=== PATIENT | female | born 1955 | race Asian ===

== ENCOUNTER 2017-03-16 20:58 | Emergency (ER) | payer MEDICAID ==
[~2017-03-16] VITALS: Ht 149.9 cm; Wt 63.5 kg
[~2017-03-16 20:58] MED LIST: ASPIRIN EC81 MG ORAL; ATORVASTATIN CA20 MG ORAL; BACTRIM DS TAB1 EAC1 ORAL; CEPHALEXIN500 MG ORAL; CRESTOR10 M1 ORAL; GABAPENTIN300 MG ORAL; GEMFIBROZIL600 MG ORAL; HYDROCHLOROTHIA25 MG ORAL; LOSARTAN POTASS50 MG ORAL; MEDROL DOSEPAK4 MG ORAL; METFORMIN HCL500 M1 ORAL; METFORMIN HCL850 M1 ORAL; OMEPRAZOLE20 M3 ORAL; SUPER B-50 COM1 EACH PO
[2017-03-16 22:20] VITALS: BP 196/102
--- NOTE | 2017-03-16 22:24 | Emergency Room Report ---
History of Present Illness General Chief Complaint: Headache Source: Patient, Family Member Present Illness HPI 61-year-old female history of hypertension, diabetes, history of headaches, presenting with headache for one days. Patient states headache is on right- sided headache throbbing, also going down to bottom of the head. Patient states that she normally gets headaches however this feels a little different but cannot explain why. Denies any trauma Denies any fever chills nausea vomiting. Patient states she checked her blood pressure today and her systolic was in the 160s, she took an extra losartan Patient also states right-sided neck pain, no midline pain, pain is not worse with breathing chin to chest Allergies: Coded Allergies: No Known Allergies (Unverified , 12/12/14) Patient History Past Medical History: see triage record Past Surgical History: none Pertinent Family History: none Reviewed Nursing Documentation: PMH: Agreed, PSxH: Agreed Nursing Documentation-PMH Hx Hypertension: Yes Hx Diabetes: Yes - initial onset 47y/o in the [facility] Hx Cancer: No Hx Gastrointestinal Problems: Yes Hx Neurological Problems: No Review of Systems All Other Systems: negative except mentioned in HPI Physical Exam Vital Signs Date Time Temp Pulse Resp B/P (MAP) Pulse Ox O2 Delivery O2 Flow Rate FiO2 03/16/17 21:59 97.9 103 16 196/102 99 Room Air Sp02 EP Interpretation: reviewed, normal General Appearance: normal inspection, well appearing, no apparent distress, alert, GCS 15, non-toxic Head: normocephalic, atraumatic Eyes: bilateral eye normal inspection, bilateral eye PERRL, bilateral eye EOMI ENT: normal ENT inspection, normal pharynx, normal voice, moist mucus membranes Neck: normal inspection, full range of motion, supple Respiratory: normal inspection, lungs clear, normal breath sounds, no respiratory distress, no retraction, no wheezing, speaking full sentences, chest symmetrical Cardiovascular #1: normal inspection, regular rate, rhythm, no edema, normal capillary refill Cardiovascular #2: 2+ radial (R), 2+ radial (L) Gastrointestinal: normal inspection, non tender, soft, non-distended, no guarding Musculoskeletal: normal inspection, back normal, normal range of motion, non- tender Neurologic: normal inspection, alert, oriented x3, responsive, motor strength/ tone normal, sensory intact, normal gait, speech normal Psychiatric: normal inspection, judgement/insight normal, memory normal Skin: normal inspection, normal color, no rash, warm/dry, well hydrated, normal turgor Medical Decision Making Diagnostic Impression: Primary Impression: Headache ER Course 61-year-old female presenting with headache DDX: Primary headache, dehydration, intracranial bleed/tumor Other serious diagnoses on differential such as intracranial bleed/sah, meningitis/encephalitis, tumor, however patients H&P is more consistent with benign etiology at this time. There are no neurological signs/symptoms/findings on physical exam and patient appears nontoxic. Plan: Routine labs, CT head Pain control, IVF ER course: CT head negative, patient given Toradol Reglan Benadryl Patient feels much better with meds. Patient continues to appear nontoxic, aox3, no neurologic symptoms. Patient has been sleeping comfortably Last BP 118/70 Disposition: Patient will be discharged to home. Patient instructed to follow up with primary care doctor within 5 days. Patient also instructed to follow up with a neurologist within 1 week. Strict return precautions discussed with patient such as severe/worsening headache, nausea, vomiting, fever chills, neck pain. Patient verbalized understanding. Please note that this Emergency Department Report was dictated using [employer] infection control technology software, occasionally this can lead to erroneous entry secondary to interpretation by the dictation equipment. Laboratory Tests Test 03/16/17 22:30 White Blood Count 11.2 K/UL (4.8-10.8) H Red Blood Count 4.59 M/UL (4.20-5.40) Hemoglobin 14.0 G/DL (12.0-16.0) Hematocrit 41.4 % (37.0-47.0) Mean Corpuscular Volume 90 FL (80-99) Mean Corpuscular Hemoglobin 30.4 PG (27.0-31.0) Mean Corpuscular Hemoglobin Concent 33.7 G/DL (32.0-36.0) Red Cell Distribution Width 11.2 % (11.6-14.8) L Platelet Count 221 K/UL (150-450) Mean Platelet Volume 7.0 FL (6.5-10.1) Neutrophils (%) (Auto) 67.2 % (45.0-75.0) Lymphocytes (%) (Auto) 21.3 % (20.0-45.0) Monocytes (%) (Auto) 5.1 % (1.0-10.0) Eosinophils (%) (Auto) 5.3 % (0.0-3.0) H Basophils (%) (Auto) 1.1 % (0.0-2.0) Urine Color Pale yellow Urine Appearance Clear Urine pH 5 (4.5-8.0) Urine Specific Cisco 1.015 (1.005-1.035) Urine Protein 1+ (NEGATIVE) H Urine Glucose (UA) 2+ (NEGATIVE) H Urine Ketones Negative (NEGATIVE) Urine Occult Blood 2+ (NEGATIVE) H Urine Nitrite Negative (NEGATIVE) Urine Bilirubin Negative (NEGATIVE) Urine Urobilinogen Normal MG/DL (0.0-1.0) Urine Leukocyte Esterase 1+ (NEGATIVE) H Urine RBC 5-10 /HPF (0 - 2) H Urine WBC 2-4 /HPF (0 - 2) Urine Squamous Epithelial Cells Few /LPF (NONE/OCC) Urine Bacteria Few /HPF (NONE) Sodium Level 141 mEQ/L (135-145) Potassium Level 3.6 mEQ/L (3.4-4.9) Chloride Level 98 mEQ/L (98-107) Carbon Dioxide Level 29 mEQ/L (20-30) Anion Gap 14 (5-15) Blood Urea Nitrogen 15 mg/dL (7-23) Creatinine 0.8 mg/dL (0.5-0.9) Estimate Glomerular Filtration Rate > 60 mL/min (>60) Glucose Level 250 mg/dL (74-106) H Calcium Level 9.6 mg/dL (8.6-10.2) Total Bilirubin 0.5 mg/dL (0.0-1.2) Aspartate Amino Transferase (AST) 21 U/L (5-40) Alanine Aminotransferase (ALT) 30 U/L (3-33) Alkaline Phosphatase 76 U/L (35-104) Total Creatine Kinase 132 U/L (26-140) Creatine Kinase MB 3.2 ng/mL (< 3.8) Creatine Kinase MB Relative Index 2.4 Troponin I < 0.30 ng/mL (<=0.30) Pro-B-Type Natriuretic Peptide 33 pg/mL (0-125) Total Protein 7.4 g/dL (6.6-8.7) Albumin 4.5 g/dL (3.5-5.2) Globulin 2.9 g/dL Albumin/Globulin Ratio 1.5 (1.0-2.7) EKG Diagnostic Results Rate: normal Rhythm: NSR ST Segments: other - T wave flattening ant leads ASA given to the pt in ED: No Rhythm Strip Diag. Results EP Interpretation: yes Rate: 96 Rhythm: NSR, no PVC's, no ectopy CT/MRI/US Diagnostic Results CT/MRI/US Diagnostic Results : Imaging Test Ordered: CT Head Impression CT HEAD: No ICH, mass effect or edema. No evidence of acute cortical stroke. Visualized sinuses and mastoid air cells are clear. Electronically signed by Ana Wright MD Last Vital Signs Date Time Temp Pulse Resp B/P (MAP) Pulse Ox O2 Delivery O2 Flow Rate FiO2 03/16/17 22:20 97.9 16 196/102 99 Room Air 03/16/17 21:59 103 Disposition: HOME, SELF-CARE Condition: Improved Scripts Ibuprofen* (MOTRIN*) 600 Mg Tablet 600 MG ORAL Q8H Y for For Pain, #30 TAB 0 Refills Prov: Ana Wright M.D. 03/17/17 Ana Wright M.D. Mar 16, 2017 22:24
[2017-03-16 22:59] LABS: APPEARANCE,URINE CLEAR; KETONES,URINE NEGATIVE (NEGATIVE); LEUKOCYTE ESTERASE ,URINE 1+ (NEGATIVE); NITRITE,URINE NEGATIVE (NEGATIVE); PH,URINE 5 (4.5-8.0); PROTEIN,URINE 1+ (NEGATIVE); UROBILINOGEN,URINE NORMAL MG/DL (0.0-1.0)
[2017-03-16 23:01] LABS: BASOPHILS % (AUTO) 1.1 % (0.0-2.0); EOSINOPHILS % (AUTO) 5.3 % (0.0-3.0); LYMPHOCYTES % (AUTO) 21.3 % (20.0-45.0); MEAN CORPUSCULAR HEMOGLOBIN 30.4 PG (27.0-31.0); MEAN CORPUSCULAR HGB CONC 33.7 G/DL (32.0-36.0); MEAN CORPUSCULAR VOLUME 90 FL (80-99); MONOCYTES % (AUTO) 5.1 % (1.0-10.0); NEUTROPHILS % (AUTO) 67.2 % (45.0-75.0); PLATELET COUNT 221 K/UL (150-450); RED BLOOD COUNT 4.59 M/UL (4.20-5.40); RED CELL DISTRIBUTION WIDTH 11.2 % (11.6-14.8); WHITE BLOOD COUNT 11.2 K/UL (4.8-10.8)
[2017-03-16 23:03] LABS: TROPONIN I < 0.30 ng/mL (<=0.30)
[2017-03-16 23:06] LABS: ALANINE AMINOTRANSFERASE 30 U/L (3-33); ALBUMIN/GLOBULIN RATIO 1.5 (1.0-2.7); ANION GAP 14 (5-15); ASPARTATE AMINO TRANSFERASE 21 U/L (5-40); BACTERIA,URINE FEW /HPF; CALCIUM 9.6 mg/dL (8.6-10.2); CARBON DIOXIDE 29 mEQ/L (20-30); CHLORIDE 98 mEQ/L (98-107); CREATININE 0.8 mg/dL (0.5-0.9); GLOMERULAR FILTRATION RATE > 60 mL/min (>60); HEMOLYSIS 7; POTASSIUM 3.6 mEQ/L (3.4-4.9); SODIUM 141 mEQ/L (135-145); SQUAMOUS EPITHELIAL CELL,UR FEW /LPF (NONE/OCC); TOTAL PROTEIN 7.4 g/dL (6.6-8.7)
[2017-03-16] MEDS ORDERED: DiphenhydrAMINE 50mg/ml Inj IVP ONE (23:15)
[2017-03-16] MEDS ORDERED: Metoclopramide 10mg/2ml Inj IVP ONE (23:15)
[2017-03-16] MEDS ORDERED: Methocarbamol 750mg tab ORAL ONE (23:15)
[2017-03-16 23:16] VITALS: BP 154/92
[2017-03-16 23:17] LABS: CKMB 3.2 ng/mL (< 3.8)
[2017-03-17] MEDS ORDERED: Ketorolac 30mg Inj IV ONE (00:30)
[2017-03-17] MEDS ORDERED: IBUPROFEN600 MG ORAL (00:58)
[2017-03-17 01:14] VITALS: BP 118/70
[2017-03-17 01:16] VITALS: BP 118/70
--- NOTE | 2017-03-17 09:16 | Diagnostic Imaging Report ---
Indication: PAIN Technique: Continuous helical CT scanning of the head was performed without intravenous contrast material. Axial and coronal 5 mm sections were generated. Radiation dose was minimized using automated exposure control Dose: Total Dose Length Product - DLP [address] Dose Index - CTDIvol(s) 70.38 mGy. Comparison: None Findings: The ventricular system is normal in size and configuration. There is no shift of midline structures. No abnormal extra-axial fluid collections are noted. There is no evidence of intracerebral bleeding. No other abnormal high or low density areas are noted within the brain. Prominent solid turcica, may indicate empty sella. Intact calvarium. Visualized orbits and sinuses are unremarkable. Impression: Normal CT scan of the head without contrast material. This agrees with the preliminary interpretation provided overnight by [facility]erad[facility] service. The CT scanner at [facility] is accredited by the [employer] and the scans are performed using protocols designed to limit radiation exposure to as low as reasonably achievable to attain images of sufficient resolution adequate for diagnostic evaluation.
--- NOTE | 2017-03-17 12:49 | Cardiology Report ---
APPROVED REPORT EKG Measurement Heart [id number] Normal sinus rhythm Low voltage QRS Cannot rule out Anterior infarct, age undetermined Abnormal ECG
--- NOTE | 2017-03-17 13:08 | Diagnostic Imaging Report ---
Indication: PAIN Technique: One view of the chest Comparison: 03/29/2015 Findings: Lungs and pleural spaces are clear. Heart size is normal. There are aortic calcifications. Findings are unchanged Impression: No acute process This agrees with the preliminary interpretation provided by the emergency room physician
== END 2017-03-17 01:25 | disposition home or self-care (01) ==
LOC: EMR 21:42
DX: I10 Essential (primary) hypertension (principal); E11.9 Type 2 diabetes mellitus without complications; Z87.19 Personal history of other diseases of the digestive system
CPT/HCPCS: 36415; 70450; 71010; 80053; 81003; 82550; 82553; 83880; 84484; 85025; 93005; 96361; 96374; 96375; 99284; J1200; J1885; J2765; J7040

== ENCOUNTER 2018-01-25 12:14 | Emergency (ER) | payer MEDICAID ==
[~2018-01-25] VITALS: Ht 149.9 cm; Wt 63.5 kg
[~2018-01-25 12:14] MED LIST changes: +IBUPROFEN600 MG ORAL
[2018-01-25 12:31] VITALS: BP 166/82
--- NOTE | 2018-01-25 13:14 | Emergency Room Report ---
History of Present Illness General Chief Complaint: Pain Source: Patient Present Illness HPI 62-year-old female patient presents ER complaining of left hand and arm numbness and tingling x1 day. Reports similar symptoms have been present previously intermittently for the past several years. Reports history of diabetes and diabetic neuropathy. Reports she is currently taking gabapentin. Reports that her diabetes is well-controlled. Reports that she is follow-up appointment tomorrow for insulin injection. Denies injury or trauma. Denies other acute symptoms. denies fever, chest pain, shortness of breath. Denies vision changes, hematuria, other acute complaints. Allergies: Coded Allergies: No Known Allergies (Unverified , 12/12/14) Patient History Past Medical History: see triage record Reviewed Nursing Documentation: PMH: Agreed; PSxH: Agreed Nursing Documentation-PMH Past Medical History: No History, Except For Hx Hypertension: Yes Hx Diabetes: Yes - initial onset 47y/o in the [facility] Hx Cancer: No Hx Gastrointestinal Problems: Yes Hx Neurological Problems: No Review of Systems All Other Systems: negative except mentioned in HPI Physical Exam Vital Signs Date Time Temp Pulse Resp B/P (MAP) Pulse Ox O2 Delivery O2 Flow Rate FiO2 01/25/18 12:21 98.2 89 18 165/92 100 Room Air 98.2 Sp02 EP Interpretation: reviewed, normal General Appearance: well appearing, no apparent distress, alert, GCS 15, non- toxic Head: normocephalic, atraumatic Eyes: bilateral eye normal inspection, bilateral eye PERRL ENT: hearing grossly normal, normal pharynx, no angioedema, normal voice, uvula midline, moist mucus membranes Neck: full range of motion, no bony tend Respiratory: lungs clear, normal breath sounds, no rhonchi, no respiratory distress, no accessory muscle use, no wheezing, speaking full sentences Cardiovascular #1: regular rate, rhythm, no edema Cardiovascular #2: 2+ radial (R), 2+ radial (L) Gastrointestinal: non tender, soft, no mass, non-distended, no guarding, no rebound Genitourinary: no CVA tenderness Musculoskeletal: back normal, digits/nails normal, gait/station normal, normal range of motion, non-tender, other - NVI, full ROM, no TTP, no erythema or edema , strength intact of bilateral upper extemities Neurologic: alert, oriented x3, responsive, mill controller III-XII nml as tested, motor strength/tone normal, sensory intact Skin: rash - bilateral hands: Mildly erythematous rash with flaking, cracking and fissures, no bleeding, no open wounds, no lesions, no papules, no blisters , no linear burrows Medical Decision Making PA Attestation Dr. Gonzalez is my supervising Physician whom patient management has been discussed with. Diagnostic Impression: Primary Impression: Diabetic neuropathy Additional Impression: Hand dermatitis ER Course Pt. presents to the ED c/o numbness in right hand and arm. multiple differentials considered. Vital signs: are WNL, pt. is afebrile ER COURSE: sales representative malt liquors used for interview, Jose #[id number] Accu-Chek performed in the ER, sugar 132. Blood sugar not elevated, do not believe patient requires labs at this time. Denies chest pain, shortness of breath, abdominal pain, hematuria, headache. complaining of numbness in left hand and arm. Denies history of trauma. Does not require imaging at this time. Patient reports history of similar symptoms in the past, currently taking gabapentin. instructed patient to follow-up with primary care provider tomorrow at scheduled appointment to discuss increasing dosage of gabapentin or using alternative medications. Continue to take ibuprofen for relief of pain symptoms. Reports that she took her gabapentin and ibuprofen today. Physical exam benign, capillary Refill less than 2 seconds, 2 + radial pulses, full range of motion and strength noted. Symptoms likely related to history of diabetic neuropathy. Needs continued outpatient follow- up and management of symptoms.due to recently taking pain medication and gabapentin prior to arrival at the ER, will not provide medication in ER.continue taking medications as previously instructed. Request referral to specialist for further treatment and referral from primary care provider. on physical exam, mildly erythematous rash with flaking cracking and fissures noted on bilateral palms. patient states that she has been seen by this for her primary care provider but does not have a lotion that she is currently taking. Will provide patient with clobetasol for treatment of hand. Follow-up with PCP and request referral to dermatology. provided patient with contacts for dermatology follow-up. DISCHARGE: Rx provided for clobetasol At this time pt is stable for d/c to home. Patient is resting comfortably, in no acute distress, nontoxic appearing, talking without difficulty. Patient to take medications as instructed Will provide with patient care instructions and any necessary prescriptions. Care plan and follow-up instructions provided. Patient instructed to follow-up with primary care provider in 3 - 5 days. Patient questions asked and answered. Patient reports understanding and agreement to treatment plan. ER precautions given. Patient instructed to return to ER immediately for any new or worsening of symptoms including but not limited to increasing SOB, persistent fever, chest pain, intractable vomiting. - Please note that this Emergency Department Report was dictated using [employer] dressing engineer technology software, occasionally this can lead to erroneous entry secondary to interpretation by the dictation equipment. Last Vital Signs Date Time Temp Pulse Resp B/P (MAP) Pulse Ox O2 Delivery O2 Flow Rate FiO2 01/25/18 12:31 98.2 77 18 166/82 100 Room Air 98.2 Disposition: HOME, SELF-CARE Condition: Stable Scripts Clobetasol Propionate/Emoll (CLOBETASOL EMOLLIENT 0.05% CRM) 15 Gm Cream..g. 15 GM TP BID for 10 Days, #15 GM Prov: Jacques Street 01/25/18 Referrals: NON PHYSICIAN (PCP) Patient Instructions: Diabetic Neuropathy, Hand Dermatitis, [id number], Peripheral Neuropathy Additional Instructions: Followup with primary care provider at scheduled appointment and discuss treatment for her neuropathy. Discuss alteration or increasing dosage of medication gabapentin for nerve pain. Request referral to dermatology. Take medications as directed. Do not apply cream to face or skin creases. Patient questions asked and answered. ER precautions given, patient instructed to return to ER immediately for any new or worsening of symptoms. [facility] [address] Jan 25, 2018 13:14
[2018-01-25] MEDS ORDERED: CLOBETASOL EMOL15 GM TP (13:18)
[2018-01-25 13:44] VITALS: BP 158/80
== END 2018-01-25 13:47 | disposition home or self-care (01) ==
LOC: EMR 12:54
DX: L30.9 Dermatitis, unspecified (principal); E11.40 Type 2 diabetes mellitus with diabetic neuropathy, unspecified; Z79.4 Long term (current) use of insulin; I10 Essential (primary) hypertension
CPT/HCPCS: 82962; 99283

== ENCOUNTER 2019-01-06 22:24 | Emergency (ER) | payer MEDICAID ==
[~2019-01-06] VITALS: Ht 149.9 cm; Wt 51.3 kg
[~2019-01-06 22:24] MED LIST changes: +CLOBETASOL EMOL15 GM TP
[2019-01-06 22:40] VITALS: BP 186/97
--- NOTE | 2019-01-06 22:40 | NUR ---
ED Nurse Note: pt ambulated to ed c/o high bp 181/100 at home earlier this afternoon. pt denies dizziness, slight shortness of breath
[2019-01-06 23:15] LABS: BASOPHILS % (AUTO) 1.1 % (0.0-2.0); EOSINOPHILS % (AUTO) 3.9 % (0.0-3.0); HEMATOCRIT 42.4 % (37.0-47.0); HEMOGLOBIN 14.3 G/DL (12.0-16.0); LYMPHOCYTES % (AUTO) 18.5 % (20.0-45.0); MEAN CORPUSCULAR VOLUME 87 FL (80-99); NEUTROPHILS % (AUTO) 71.5 % (45.0-75.0); PLATELET COUNT 274 K/UL (150-450); RED BLOOD COUNT 4.88 M/UL (4.20-5.40); RED CELL DISTRIBUTION WIDTH 10.7 % (11.6-14.8); WHITE BLOOD COUNT 10.9 K/UL (4.8-10.8)
[2019-01-06 23:17] LABS: ANION GAP 8 mmol/L (5-15); BLOOD UREA NITROGEN 18 mg/dL (7-18); CALCIUM 10.1 MG/DL (8.5-10.1); CARBON DIOXIDE 32 MMOL/L (21-32); CHLORIDE 99 MMOL/L (98-107); CREATININE 0.9 MG/DL (0.55-1.30); POTASSIUM 3.5 MMOL/L (3.5-5.1); SODIUM 139 MMOL/L (136-145)
--- NOTE | 2019-01-06 23:20 | NUR ---
ED Nurse Note: CARTER (EMPLOYER)
--- NOTE | 2019-01-06 23:25 | Emergency Room Report ---
History of Present Illness General Chief Complaint: Hypertension Source: Patient Present Illness HPI This is a 63-year-old female with history of hypertension and diabetes. She presents with chief complaint of high blood pressure. She says she ate some salty Luxembour[place] food for lunch. Blood pressure at home was in the 180s. Patient has no symptoms. Denies any nausea vomiting. Denies any fever chills. Denies any swelling. No shortness of breath. Takes losartan 100 mg a day for her blood pressure. Allergies: Coded Allergies: No Known Allergies (Unverified , 12/12/14) Patient History Past Medical History: see triage record, old chart reviewed, DM, HTN Past Surgical History: none Pertinent Family History: none Social History: Denies: smoking Now: No Immunizations: other Reviewed Nursing Documentation: PMH: Agreed; PSxH: Agreed Nursing Documentation-PMH Past Medical History: No History, Except For Hx Hypertension: Yes Hx Diabetes: Yes Hx Cancer: No Hx Gastrointestinal Problems: Yes Hx Neurological Problems: No Review of Systems Eye: Denies: eye pain, blurred vision ENT: Denies: ear pain, nose congestion, throat swelling Respiratory: Denies: cough, shortness of breath Cardiovascular: Denies: chest pain, palpitations Gastrointestinal: Denies: abdominal pain, diarrhea, nausea, vomiting Musculoskeletal: Denies: back pain, joint pain Skin: Denies: rash Neurological: Denies: headache, numbness Endocrine: Denies: increased thirst, increased urine Hematologic/Lymphatic: Denies: easy bruising All Other Systems: negative except mentioned in HPI Physical Exam Vital Signs Date Time Temp Pulse Resp B/P (MAP) Pulse Ox O2 Delivery O2 Flow Rate FiO2 01/06/19 22:35 98.2 81 18 193/99 (130) 100 Room Air Vitals with hypertension Sp02 EP Interpretation: reviewed, normal General Appearance: well appearing, no apparent distress, alert Head: normocephalic, atraumatic Eyes: bilateral eye PERRL, bilateral eye EOMI ENT: hearing grossly normal, normal pharynx Neck: full range of motion, supple, no meningismus Respiratory: chest non-tender, lungs clear, normal breath sounds Cardiovascular #1: regular rate, rhythm, no murmur Gastrointestinal: normal bowel sounds, non tender, no mass, no organomegaly, no bruit, non-distended Musculoskeletal: back normal, gait/station normal, normal range of motion Psychiatric: mood/affect normal Medical Decision Making Diagnostic Impression: Primary Impression: Hypertension Qualified Codes: I10 - Essential (primary) hypertension Additional Impression: UTI (lower urinary tract infection) ER Course Patient presents with hypertension. No endorgan damage. She does have a urinary tract infection. Will put on antibiotics. No evidence of sepsis or pyelonephritis. Last Vital Signs Date Time Temp Pulse Resp B/P (MAP) Pulse Ox O2 Delivery O2 Flow Rate FiO2 01/06/19 22:53 186/97 01/06/19 22:40 81 18 Room Air 01/06/19 22:40 98.2 100 Status: improved Disposition: HOME, SELF-CARE Condition: Stable Scripts Cephalexin* (KEFLEX*) 500 Mg Capsule 500 MG ORAL TID, #21 CAP Prov: Stanley Roberto MD 01/07/19 Amlodipine Besylate (Norvasc) 10 Mg Tablet 5 MG ORAL DAILY, #30 TAB Prov: Stanley Roberto MD 01/07/19 Additional Instructions: Follow-up with your doctor in 7 days. Decrease salt intake. Return if worse. Stanley Roberto MD Jan 06, 2019 23:25
[2019-01-06] MEDS ORDERED: Acetaminophen 500mg (ES) tab ORAL ONE (23:30)
[2019-01-06 23:33] LABS: APPEARANCE,URINE CLEAR; BILIRUBIN, URINE NEGATIVE (NEGATIVE); COLOR,URINE PALE YELLOW; GLUCOSE, URINE (UA) 2+ (NEGATIVE); KETONES,URINE NEGATIVE (NEGATIVE); LEUKOCYTE ESTERASE ,URINE 2+ (NEGATIVE); NITRITE,URINE POSITIVE (NEGATIVE); PH,URINE 7 (4.5-8.0); PROTEIN,URINE 3+ (NEGATIVE); UROBILINOGEN,URINE NORMAL MG/DL (0.0-1.0)
[2019-01-07] MEDS ORDERED: cefTRIAXone 1 GM in NS 55 ML IVPB ONE ×2
[2019-01-07] MEDS ORDERED: NORVASC10 MG ORAL (00:06)
[2019-01-07] MEDS ORDERED: CEPHALEXIN500 MG ORAL (00:06)
[2019-01-07 00:17] VITALS: BP 136/79
--- NOTE | 2019-01-07 00:17 | NUR ---
ER DISCHARGE NOTE: Patient is cleared to be discharged per ERMD, pt is aox4, on room air, with stable vital signs. pt was given dc and prescription instructions, pt was able to verbalize understanding, pt id band and iv site removed without complications. pt is able to ambulate with steady gait. pt took all belongings.
== END 2019-01-07 00:17 | disposition home or self-care (01) ==
LOC: EMR 23:08
DX: I10 Essential (primary) hypertension (principal); N39.0 Urinary tract infection, site not specified; E11.9 Type 2 diabetes mellitus without complications
CPT/HCPCS: 36415; 80048; 81001; 85025; 87086; 87181; 96361; 96365; 96375; 99284; J0360; J0696; J2405